=== PATIENT | female | born 1990 | race Caucasian/White ===

== ENCOUNTER 2018-07-04 04:07 | Emergency (ER) | payer SELFPAY ==
--- NOTE | 2018-07-04 04:11 | PDOC ---
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 Patient comes in for evaluation. The dog is known to the patient and his vaccinations are all up-to- date. Patient said she's brought the wound for approximately 10 minutes with a cleaning solution chf Allergies: None Past Medical History: none Social history: Lives with family. No smoking. No alcohol. No illicit drugs. Surgical history: None General: No fevers or chills, no weakness, no weight loss HEENT: No change in vision. No sore throat,. No ear pain CardioVascular: no chest discomfort. No shortness of breath Respiratory:No cough, or wheezing. Gastrointestinal: no nausea, vomiting, diarrhea or constipation, No rectal bleeding Genitourinary: No dysuria, hematuria, or frequency Musculoskeletal: No joint or muscle pain or swelling, dog bite to finger Neurologic: No headache, vertigo, dizziness or loss of consciousness Psychiatric: nor depression Skin: No rashes or easy bruising Endocrine: no increased thirst or abnormal weight change Allergic: no skin or latex allergy All other systems reviewed and normal GENERAL: The patient is awake, alert, and fully oriented, in no acute distress. HEAD: Normal with no signs of trauma. EYES: Pupils equal, round and reactive to light, extraocular movements intact, sclera anicteric, conjunctiva clear. EXTREMITIES: Right index finger there is a small puncture wound to the phalanx palmar surface of the finger there is a small amount of bleeding from the wound and neurovascular is intact. NEUROLOGICAL: Normal speech, normal gait. PSYCH: Normal mood, normal affect. SKIN: Warm, Dry, normal turgor, no rashes or lesions noted. Assessment plan: This 28-year-old female with a dog bite to her finger. Was not sutured as it was a deep puncture wound patient was started on antibiotics Augmentin given first dose in ED and prescription sent to her pharmacy. Wound was cleaned and dressed and patient discharged Past History - Past Medical History Allergies/Adverse Reactions: Allergies Allergy/AdvReac Type Severity Reaction Status Date / Time No Known Allergies Allergy Unverified 07/04/18 04:08 Home Medications: Ambulatory Orders Amoxicillin/Potassium Clav [Augmentin 875-125 Tablet] 1 each PO BID #10 tablet 07/04/18 *DC/Admit/Observation/Transfer - Discharge Dispostion Condition at time of disposition: Stable - Referrals - Patient Instructions - Post Discharge Activity
[2018-07-04] MEDS ORDERED: DIPHTH,PERTUSS(ACELL),TET 0.5 ML DISP.SYRIN IM ONE ×2 (04:20→04:22)
[2018-07-04] MEDS ORDERED: IBUPROFEN 600 MG TABLET (FP) PO ONE ×2 (04:20→04:22)
[2018-07-04] MEDS ORDERED: AMOX TR/POT CLAV 875MG/125MG TABLETS (FP) PO ONE (04:20)
[2018-07-04] MEDS ORDERED: AMOX TR/POT CLAV 875MG/125MG TABLETS (FP) ONE (04:22)
[2018-07-04 04:51] VITALS: BP 103/58; PULSE 83; TEMP 98.4; BMI 33.8
== END 2018-07-04 04:48 | disposition home or self-care (01) ==
LOC: FER 04:07
PROC: 3E0234Z Introduction of Serum, Toxoid and Vaccine into Muscle, Percutaneous Approach (ICD-10-PCS; principal; 2018-07-04)
DX: S61.230A Puncture wound without foreign body of right index finger without damage to nail, initial encounter (principal); W54.0XXA Bitten by dog, initial encounter; Y93.89 Activity, other specified; Y92.234 Operating room of hospital as the place of occurrence of the external cause; Y99.0 Civilian activity done for income or pay
CPT/HCPCS: 90715; 99281-25